=== PATIENT | female | born 1955 | race Caucasian/White ===

== ENCOUNTER → 2022-05-01 08:16 | Outpatient (CLI) | payer MEDICARE, SELFPAY ==
[2022-05-01 09:30] LABS: Hematocrit 36.9 % (36-46); Hemoglobin 12.4 g/dL (12.0-16.0); Mean Corpuscular HGB Conc 33.6 % (30-36); Mean Corpuscular Hemoglobin 31.8 PG (26-34); Mean Corpuscular Volume 94.8 fL (80-100); Platelet Count 191 X10^3/uL (150-400); Red Blood Cell Count 3.89 X10^6/uL (4.0-5.2); Red Cell Distribution Width 13.1 % (11.6-14.8); White Blood Cell Count 10.1 X10^3/uL (4.5-11.0)
[2022-05-01 09:41] LABS: Creatinine Urine Random 108.6 mg/dL
[2022-05-01 09:45] LABS: Alanine Aminotransferase 15 IU/L (<35); Albumin Globulin Ratio 1.5 (1.0-2.8); Alkaline Phosphatase 102 U/L (38-126); Aspartate Aminotransferase 22 IU/L (14-36); BUN Creatinine Ratio 22.4 (6-22); Bilirubin Total 0.2 mg/dL (0.2-1.3); Blood Urea Nitrogen 22 mg/dL (7-17); Calcium 8.8 mg/dL (8.4-10.2); Carbon Dioxide 27 mmol/L (22-32); Chloride 103 mmol/L (98-107); Cholesterol 173 mg/dL (140-199); Estimated Glomerular Filt Rate > 60 mL/min (>60); Globulin 2.6 g/dL (1.7-4.1); Glucose 227 mg/dL (80-110); HDL Cholesterol 56 mg/dL (40-60); HEMOLYSIS < 15 (0-50); LDL Cholesterol Calculated 101 mg/dL (<100); Potassium 4.3 mmol/L (3.4-5.1); Sodium 137 mmol/L (137-145); Total Protein 6.6 g/dL (6.3-8.2); Triglycerides 80 mg/dL (35-150)
[2022-05-01 09:46] LABS: Microalbumin Urine Random 2.4 mg/dL (0-1.6)
[2022-05-01 10:00] LABS: Free T3, Triiodothyronine Free 3.75 pg/mL (2.77-5.27); Free T4, Direct Thyroxine 1.27 ng/dL (0.78-2.19)
[2022-05-01 10:13] LABS: Thyroid Stimulating Hormone 3.48 uIU/mL (0.47-4.68)
[2022-05-01 10:30] LABS: Hep C Virus Ab w/Reflex Quant NEGATIVE s/c (NEGATIVE)
[2022-05-01 11:09] LABS: Neutrophils Absolute Manual 2323 /uL (3000-5900); Nucleated Red Blood Cells 1 #/Diff; Total Cells Counted 100
[2022-05-01 11:12] LABS: RBC Morphology Normal Morphology
[2022-05-02 17:44] LABS: Fecal Immunochemical Test Negative (Negative)
== END ==
PROVIDERS: PCP Nurse Practitioner; Referring Provider Nurse Practitioner; Visit Provider Nurse Practitioner
DX: Z00.00 Encounter for general adult medical examination without abnormal findings (principal); N18.9 Chronic kidney disease, unspecified; Z11.59 Encounter for screening for other viral diseases; Z12.11 Encounter for screening for malignant neoplasm of colon
CPT/HCPCS: 36415; 80053; 80061; 82043; 82274; 82570; 83036; 84439; 84443; 84481; 85025; 86803

== ENCOUNTER → 2022-06-18 10:33 | Outpatient (CLI) | payer MEDICARE, SELFPAY | PROVIDERS: PCP Nurse Practitioner; Visit Provider Nurse Practitioner | DX: N76.0 Acute vaginitis (principal) | CPT/HCPCS: 87070; 87077; 87147; 87205 ==

== ENCOUNTER 2022-07-26 12:00 | Outpatient (RCR) | payer MEDICARE, SELFPAY ==
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
== END 2022-08-01 13:50 ==
LOC: PHYS 12:00
PROVIDERS: Family Provider Nurse Practitioner; PCP Nurse Practitioner; Referring Provider Nurse Practitioner; Visit Provider Nurse Practitioner
DX: R42 Dizziness and giddiness (principal)
CPT/HCPCS: 97112; 97163; 97535

== ENCOUNTER → 2022-08-02 08:20 | Outpatient (CLI) | payer MEDICARE, SELFPAY ==
[2022-08-02 09:15] LABS: Add Manual Diff / Slide Review NO; Basophils Absolute Auto 0 /uL (0-100); Basophils Percent Auto 0.9 % (0-2); Eosinophils Absolute Auto 200 /uL (0-450); Eosinophils Percent Auto 6.2 % (2-4); Hematocrit 37.5 % (36-46); Hemoglobin 12.6 g/dL (12.0-16.0); Lymphocytes Absolute Auto 1400 /uL (1100-4500); Lymphocytes Percent Auto 36.1 % (25-40); Mean Corpuscular HGB Conc 33.6 % (30-36); Mean Corpuscular Hemoglobin 31.5 PG (26-34); Mean Corpuscular Volume 93.8 fL (80-100); Monocytes Absolute Auto 400 /uL (0-900); Monocytes Percent Auto 9.3 % (3-14); Neutrophils Absolute Auto 1800 /uL (1500-7000); Neutrophils Percent Auto 47.5 % (50-75); Platelet Count 207 X10^3/uL (150-400); Red Cell Distribution Width 12.8 % (11.6-14.8); White Blood Cell Count 3.8 X10^3/uL (4.5-11.0)
[2022-08-02 09:25] LABS: Hemoglobin A1C% w Est Avg Glu 7.3 % (4.0-6.0)
[2022-08-02 09:31] LABS: Alanine Aminotransferase 12 IU/L (<35); Albumin 4.1 g/dL (3.5-5.0); Albumin Globulin Ratio 1.4 (1.0-2.8); Alkaline Phosphatase 63 U/L (38-126); Aspartate Aminotransferase 22 IU/L (14-36); BUN Creatinine Ratio 23.3 (6-22); Bilirubin Total 0.3 mg/dL (0.2-1.3); Blood Urea Nitrogen 21 mg/dL (7-17); Calcium 8.9 mg/dL (8.4-10.2); Carbon Dioxide 30 mmol/L (22-32); Chloride 103 mmol/L (98-107); Cholesterol 162 mg/dL (140-199); Estimated Glomerular Filt Rate > 60 mL/min (>60); Globulin 2.9 g/dL (1.7-4.1); Glucose 128 mg/dL (80-110); HDL Cholesterol 53 mg/dL (40-60); HEMOLYSIS < 15 (0-50); LDL Cholesterol Calculated 95 mg/dL (<100); Potassium 4.3 mmol/L (3.4-5.1); Sodium 138 mmol/L (137-145); Triglycerides 68 mg/dL (35-150)
== END ==
PROVIDERS: Family Provider Nurse Practitioner; PCP Nurse Practitioner; Referring Provider Nurse Practitioner; Visit Provider Nurse Practitioner
DX: D64.9 Anemia, unspecified (principal); E11.69 Type 2 diabetes mellitus with other specified complication; E78.5 Hyperlipidemia, unspecified; N18.9 Chronic kidney disease, unspecified
CPT/HCPCS: 36415; 80053; 80061; 83036; 85025

== ENCOUNTER → 2022-08-13 13:00 | Outpatient (CLI) | payer MEDICARE, SELFPAY ==
--- NOTE | 2022-08-13 13:01 | DI.MG.S_ITS ---
BILATERAL DIGITAL SCREENING MAMMOGRAM 3D/2D WITH CAD: 08/13/2022 CLINICAL: Routine screening. Family history of breast cancer. Comparison is made to exams dated: 06/16/2021 mammogram and 06/10/2020 mammogram - outside location. Both breasts are almost entirely fatty (category a/<25% glandular tissue). Current study was also evaluated with a Computer Aided Detection (CAD) system. No significant masses, calcifications, or other findings are seen in either breast. There has been no significant interval change. IMPRESSION: NEGATIVE There is no mammographic evidence of malignancy. A 1 year screening mammogram is recommended. Based on the Tyrer Cuzick model (a risk assessment model) the patient's lifetime risk is 13.0% and her 10 year risk is 6.3%. According to the ACR, ACS, and NCCN guidelines, an annual breast MRI exam along with mammogram is recommended if the patient's lifetime risk is 20% or greater. This exam was interpreted at Station ID: [id number]. NOTE: For mammograms, a report in lay terms will be sent to the patient. Approximately 15% of breast malignancies will not be visualized mammographically. In the management of a palpable breast mass, a negative mammogram must not discourage biopsy of a clinically suspicious lesion. Electronically Signed By: [place] Tan M.D., jr/campbell:08/13/2022 15:14:39 letter sent: Normal Exam ACR BI-RADS Category 1: Negative [id number]
== END ==
PROVIDERS: Family Provider Nurse Practitioner; PCP Nurse Practitioner; Referring Provider Nurse Practitioner; Visit Provider Nurse Practitioner
DX: M81.0 Age-related osteoporosis without current pathological fracture (principal); Z12.31 Encounter for screening mammogram for malignant neoplasm of breast; Z80.3 Family history of malignant neoplasm of breast
CPT/HCPCS: 77063; 77067; 77080

== ENCOUNTER → 2022-10-25 10:36 | Outpatient (CLI) | payer MEDICARE, SELFPAY ==
[2022-10-25 12:27] LABS: Creatinine Urine Random 82.6 mg/dL
[2022-10-25 12:44] LABS: Microalbumi Creatinin Ratio Ur 9.6 ug/mg CR (<30); Microalbumin Urine Random 0.8 mg/dL (0-1.6)
[2022-10-25 12:56] LABS: Hemoglobin A1C% w Est Avg Glu 7.1 % (4.0-6.0)
[2022-10-25 13:31] LABS: Free T4, Direct Thyroxine 1.08 ng/dL (0.78-2.19)
[2022-10-25 13:45] LABS: Thyroid Stimulating Hormone 3.53 uIU/mL (0.47-4.68)
[2022-10-25 13:53] LABS: Alanine Aminotransferase 14 IU/L (<35); Albumin 4.1 g/dL (3.5-5.0); Albumin Globulin Ratio 1.4 (1.0-2.8); Alkaline Phosphatase 64 U/L (38-126); Aspartate Aminotransferase 22 IU/L (14-36); BUN Creatinine Ratio 19.5 (6-22); Bilirubin Total 0.3 mg/dL (0.2-1.3); Blood Urea Nitrogen 16 mg/dL (7-17); Calcium 9.2 mg/dL (8.4-10.2); Carbon Dioxide 29 mmol/L (22-32); Chloride 102 mmol/L (98-107); Cholesterol 170 mg/dL (140-199); Estimated Glomerular Filt Rate > 60 mL/min (>60); Globulin 2.9 g/dL (1.7-4.1); Glucose 127 mg/dL (80-110); HDL Cholesterol 50 mg/dL (40-60); HEMOLYSIS < 15 (0-50); LDL Cholesterol Calculated 106 mg/dL (<100); Potassium 4.2 mmol/L (3.4-5.1); Sodium 139 mmol/L (137-145); Triglycerides 71 mg/dL (35-150)
== END ==
PROVIDERS: Family Provider Nurse Practitioner; PCP Nurse Practitioner; Referring Provider Nurse Practitioner; Visit Provider Nurse Practitioner
DX: E11.69 Type 2 diabetes mellitus with other specified complication (principal); E78.5 Hyperlipidemia, unspecified; N18.9 Chronic kidney disease, unspecified; Z79.899 Other long term (current) drug therapy
CPT/HCPCS: 36415; 80053; 80061; 82043; 82570; 83036; 84439; 84443; 84481

== ENCOUNTER → 2022-12-11 11:30 | Outpatient (CLI) | payer MEDICARE, SELFPAY | PROVIDERS: Family Provider Nurse Practitioner; PCP Nurse Practitioner; Referring Provider Nurse Practitioner; Visit Provider Nurse Practitioner | DX: R42 Dizziness and giddiness (principal) | CPT/HCPCS: 93005 ==

== ENCOUNTER → 2023-01-22 10:31 | Outpatient (CLI) | payer MEDICARE, SELFPAY ==
[2023-01-22 13:02] LABS: Creatinine Urine Random 51.3 mg/dL
[2023-01-22 13:05] LABS: Alanine Aminotransferase 12 IU/L (<35); Albumin 4.1 g/dL (3.5-5.0); Albumin Globulin Ratio 1.6 (1.0-2.8); Alkaline Phosphatase 64 U/L (38-126); Aspartate Aminotransferase 19 IU/L (14-36); BUN Creatinine Ratio 19.2 (6-22); Bilirubin Total 0.3 mg/dL (0.2-1.3); Blood Urea Nitrogen 15 mg/dL (7-17); Calcium 8.9 mg/dL (8.4-10.2); Carbon Dioxide 29 mmol/L (22-32); Chloride 99 mmol/L (98-107); Cholesterol 159 mg/dL (140-199); Estimated Glomerular Filt Rate > 60 mL/min (>60); Globulin 2.5 g/dL (1.7-4.1); Glucose 110 mg/dL (80-110); HDL Cholesterol 54 mg/dL (40-60); HEMOLYSIS < 15 (0-50); LDL Cholesterol Calculated 86 mg/dL (<100); Potassium 4.3 mmol/L (3.4-5.1); Sodium 139 mmol/L (137-145); Total Protein 6.6 g/dL (6.3-8.2); Triglycerides 95 mg/dL (35-150)
[2023-01-22 13:15] LABS: Microalbumin Urine Random < 0.6 mg/dL (0-1.6)
[2023-01-22 13:22] LABS: Free T3, Triiodothyronine Free 3.84 pg/mL (2.77-5.27); Free T4, Direct Thyroxine 1.12 ng/dL (0.78-2.19)
[2023-01-22 13:36] LABS: Thyroid Stimulating Hormone 3.39 uIU/mL (0.47-4.68)
== END ==
PROVIDERS: Family Provider Nurse Practitioner; PCP Nurse Practitioner; Referring Provider Nurse Practitioner; Visit Provider Nurse Practitioner
DX: E11.69 Type 2 diabetes mellitus with other specified complication (principal); E78.5 Hyperlipidemia, unspecified; N18.9 Chronic kidney disease, unspecified; Z79.899 Other long term (current) drug therapy
CPT/HCPCS: 36415; 80053; 80061; 82043; 82570; 83036; 84439; 84443; 84481

== ENCOUNTER 2023-03-05 12:42 | Outpatient (RCR) | payer MEDICARE, SELFPAY ==
--- NOTE | 2023-03-05 16:13 | PT.OPPOC ---
Physical, Occupational & Speech Therapy At [facility] Current Diagnoses Pain in right hip (03/05/23) Visit Care Team Role Provider Type FARAZ Gillis Attending Provider Advanced [employer] Porter Family Provider Primary Care Provider Referring Provider Specialty: Family Practice Address: [address] [place] [address], [address] Email: [email or web address] Plan Of Care PT-OP-T Assessment and Plan Start: 02/26/23 11:29 Freq: Status: Active Protocol: Document 03/05/23 13:45 DCW (Rec: 03/05/23 16:11 DCW [id number]) Physical Therapy Assessment Rehab Potential Rehabilitation Potential Fair Evaluation Complexity Number of Personal Factors/Comorbidities 1-2 Number of Body Systems Impaired 1-2 Clinical Presentation at Evaluation Stable Impairments Impairments Functional Activities, Functional Mobility,Pain,ROM, Soft Tissue Mobility,Strength Goals Two Impairment Limited ROM impacts pt's ability to go horseback riding Cheese Factory Worker Goal (LTG) Pt to demonstrate improve right hip flexion to at least 120? and abduction to at least 30? 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 Significant limitation in hip ROM, both active and passive, with pain and stiffness in all planes. Does get relief with long-axis traction through LE. Additionally does display some signs of right piriformis syndrome, however limitations to hip ROM completely eliminate pt's ability to perform all stretching activities, unable to position herself for any appropriate stretching. May benefit from some hip strengthening in order to improve hip stability and hopefully increase ROM, however will likely have difficulty strengthening through full ROM, as currently most ROM is not available. Would benefit from further imaging, particularly a x-ray to determine severity of hip degeneration. Physical Therapy Plan Frequency and Duration Frequency of Treatment Every Other Week Plan of Care Start Date 03/05/23 Plan of Care End Date 05/05/23 Therapeutic Interventions Therapeutic Interventions Home Exercise Program,Joint Mobilizations,Manual Therapy, Neuromuscular Re-education, Patient/Caregiver Education, Self-Care/Home Management,Soft Tissue Mobilization, Therapeutic Activities, Therapeutic Exercises Other Referrals/Consults Referrals/Consults Recommended Strongly recommend hip x-ray Next Visit Focus/Plan Next Note Type Treatment Note Next Visit Plan Hip strengthening, stretching as tolerated, STM Plan of Care Dates Plan of Care Start Date 03/05/23 Plan of Care End Date 05/05/23 Electronically Signed by: Keon Rubin, PT 03/05/23 6255 If you are in agreement with this Plan of Care, please return a signed and dated copy. I have reviewed this Plan of Care and certify that the skilled therapy services above are required to meet the patient?s needs. Physician Signature Date Printed Name and Credentials Clinical Instructor Signature Printed Name and Credentials
--- NOTE | 2023-03-05 16:14 | PT.OIE ---
Current Diagnoses Pain in right hip (03/05/23) Past Medical History (Last Reviewed 01/31/23 @ 09:32 by FARAZ Gillis) Anemia Chronic kidney disease Hyperlipidemia associated with type 2 diabetes mellitus Non-insulin dependent diabetes mellitus without complication Visit Care Team Role Provider Type FARAZ Gillis Attending Provider Advanced Developer Programmer Analyst Family Provider Primary Care Provider Referring Provider Specialty: [facility] Practice Address: [address] [place] [address], [facility] Email: [email or web address] Physical Therapy Initial Evaluation PT-OP-A Visit Information Start: 02/26/23 11:29 Freq: Status: Active Protocol: Document 03/05/23 13:45 DCW (Rec: 03/05/23 15:28 DCW [id number]) Out-Patient Physical Therapy Visit Information Visit Information Visit Type Initial Evaluation Visit Start Time 13:45 Visit Stop Time 14:30 Total Visit Minutes 45 Visit Number 1 Number of HOCKEY INSTRUCTOR Visits 0 Evaluation Information Evaluation Date 03/05/23 PT-OP-B Current Condition Start: 02/26/23 11:29 Freq: Status: Active Protocol: Document 03/05/23 13:45 DCW (Rec: 03/05/23 15:28 DCW [id number]) Current Condition History of Current Condition Onset Date Four year history Current Complaints Right hip pain, decreased ROM History of Current Condition Pt is a 67 year old female presenting with a four year history of worsening right hip immobility. Pt has the most difficulty with hip abduction, and experiences increased pain when first attempting to get up and walk around after sitting too long. Notes she has tried a lot of stretching, but has not found anything that helps. Was able to go horseback riding recently, had difficulty getting onto the horse due to limited hip ROM, and felt pretty sore afterward . Treatment Goals Patient/Caregiver Goals Return to horseback riding with no pain or difficulty getting onto the horse. PT-OP-C Subjective Start: 02/26/23 11:29 Freq: Status: Active Protocol: Document 03/05/23 13:45 DCW (Rec: 03/05/23 15:28 DCW [id number]) OP-PT Subjective Patient Comments Patient Comments I'm not easy on myself, I really try to push it, but it just gets to the point it hurts so much, I can't move. PT-OP-F Manual Assessment Start: 03/05/23 15:17 Freq: Status: Active Protocol: Document 03/05/23 13:45 DCW (Rec: 03/05/23 15:28 DCW [id number]) Manual Assessments Soft Tissue Assessment Soft Tissue Mobility Assessment Moderate tone with tenderness to palpation 2/4: Pain with wincing at R piriformis, R hip flexors Joint Mobility Assessment Joint Mobility Assessment PROM severely limited due to joint immobility and pt complaints of pain. PT-OP-K Range of Motion Start: 02/26/23 11:29 Freq: Status: Active Protocol: Document 03/05/23 13:45 DCW (Rec: 03/05/23 15:28 DCW [id number]) Hip Goniometric Range of Motion Hip Right Passive Testing Position Supine Flexion w/Knee Flexed 103 Abduction 10 Internal Rotation 27 External Rotation 23 Left Passive Testing Position Supine Flexion w/Knee Flexed 120 Abduction 35 Internal Rotation 30 External Rotation 50 Hip ROM Limitations Hip ROM Limitations Bony Restriction,Pain PT-OP-L Special Tests Start: 02/26/23 11:29 Freq: Status: Active Protocol: Document 03/05/23 13:45 DCW (Rec: 03/05/23 15:28 DCW [id number]) Special Tests Hip Special Tests Straight Leg Raise Test Results Negative Scour Test Test Results Negative Piriformis Test Results Positive R ZURDO Test Results Unable to position due to pain PT-OP-M Strength Start: 02/26/23 11:29 Freq: Status: Active Protocol: Document 03/05/23 13:45 DCW (Rec: 03/05/23 15:28 DCW [id number]) Hip Strength Hip Manual Muscle Testing Right Flexion (L2) 4 Good Extension (S1) 4+ Good+ Abduction 4- Good- Adduction 4+ Good+ External Rotation 4+ Good+ Internal Rotation 4+ Good+ Left Flexion (L2) 5 Normal Extension (S1) 4+ Good+ Abduction 4+ Good+ Adduction 4+ Good+ External Rotation 4+ Good+ Internal Rotation 4+ Good+ PT-OP-Q Treatments Start: 02/26/23 11:29 Freq: Status: Active Protocol: Document 03/05/23 13:45 DCW (Rec: 03/05/23 16:12 DCW [id number]) Therapeutic Exercises Sidelying Exercises Clamshell Sidelying Exercise Name Clamshell Side right Resistance Yellow T-band PT-OP-T Assessment and Plan Start: 02/26/23 11:29 Freq: Status: Active Protocol: Document 03/05/23 13:45 DCW (Rec: 03/05/23 16:11 [facility] [id number]) Physical Therapy Assessment Rehab Potential Rehabilitation Potential Fair Evaluation Complexity Number of Personal Factors/Comorbidities 1-2 Number of Body Systems Impaired 1-2 Clinical Presentation at Evaluation Stable Impairments Impairments Functional Activities, Functional Mobility,Pain,ROM, Soft Tissue Mobility,Strength Goals Two Impairment Limited ROM impacts pt's ability to go horseback riding Halfway Goal (LTG) Pt to demonstrate improve right hip flexion to at least 120? and abduction to at least 30? 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 Significant limitation in hip ROM, both active and passive, with pain and stiffness in all planes. Does get relief with long-axis traction through LE. Additionally does display some signs of right piriformis syndrome, however limitations to hip ROM completely eliminate pt's ability to perform all stretching activities, unable to position herself for any appropriate stretching. May benefit from some hip strengthening in order to improve hip stability and hopefully increase ROM, however will likely have difficulty strengthening through full ROM, as currently most ROM is not available. Would benefit from further imaging, particularly a x-ray to determine severity of hip degeneration. Physical Therapy Plan Frequency and Duration Frequency of Treatment Every Other Week Plan of Care Start Date 03/05/23 Plan of Care End Date 05/05/23 Therapeutic Interventions Therapeutic Interventions Home Exercise Program,Joint Mobilizations,Manual Therapy, Neuromuscular Re-education, Patient/Caregiver Education, Self-Care/Home Management,Soft Tissue Mobilization, Therapeutic Activities, Therapeutic Exercises Other Referrals/Consults Referrals/Consults Recommended Strongly recommend hip x-ray Next Visit Focus/Plan Next Note Type Treatment Note Next Visit Plan Hip strengthening, stretching as tolerated, STM
--- NOTE | 2023-09-09 16:03 | PT.OPDS ---
Current Diagnoses Pain in right hip (03/05/23) Visit Care Team Role Provider Type FARAZ Gillis Attending Provider [employer] Professional Family Provider Primary Care Provider Referring Provider Specialty: Family Practice Address: [address] [place] [address], [facility] Email: [email or web address] Visit Number Visit Number 1 Discharge Summary PT-OP-B Current Condition Start: 02/26/23 11:29 Freq: Status: Active Protocol: Document 03/05/23 13:45 [facility] (Rec: 03/05/23 15:28 [facility] [id number]) Current Condition History of Current Condition Onset Date Four year history Current Complaints Right hip pain, decreased ROM History of Current Condition Pt is a 67 year old female presenting with a four year history of worsening right hip immobility. Pt has the most difficulty with hip abduction, and experiences increased pain when first attempting to get up and walk around after sitting too long. Notes she has tried a lot of stretching, but has not found anything that helps. Was able to go horseback riding recently, had difficulty getting onto the horse due to limited hip ROM, and felt pretty sore afterward . Treatment Goals Patient/Caregiver Goals Return to horseback riding with no pain or difficulty getting onto the horse. PT-OP-C Subjective Start: 02/26/23 11:29 Freq: Status: Active Protocol: Document 03/05/23 13:45 [facility] (Rec: 03/05/23 15:28 [facility] [id number]) OP-PT Subjective Patient Comments Patient Comments I'm not easy on myself, I really try to push it, but it just gets to the point it hurts so much, I can't move. PT-OP-F Manual Assessment Start: 03/05/23 15:17 Freq: Status: Active Protocol: Document 03/05/23 13:45 [facility] (Rec: 03/05/23 15:28 [facility] [id number]) Manual Assessments Soft Tissue Assessment Soft Tissue Mobility Assessment Moderate tone with tenderness to palpation 2/4: Pain with wincing at R piriformis, R hip flexors Joint Mobility Assessment Joint Mobility Assessment PROM severely limited due to joint immobility and pt complaints of pain. PT-OP-K Range of Motion Start: 02/26/23 11:29 Freq: Status: Active Protocol: Document 03/05/23 13:45 [facility] (Rec: 03/05/23 15:28 [facility] [id number]) Hip Goniometric Range of Motion Hip Right Passive Testing Position Supine Flexion w/Knee Flexed 103 Abduction 10 Internal Rotation 27 External Rotation 23 Left Passive Testing Position Supine Flexion w/Knee Flexed 120 Abduction 35 Internal Rotation 30 External Rotation 50 Hip ROM Limitations Hip ROM Limitations Bony Restriction,Pain PT-OP-L Special Tests Start: 02/26/23 11:29 Freq: Status: Active Protocol: Document 03/05/23 13:45 [facility] (Rec: 03/05/23 15:28 [facility] [id number]) Special Tests Hip Special Tests Straight Leg Raise Test Results Negative Scour Test Test Results Negative Piriformis Test Results Positive R ZURDO Test Results Unable to position due to pain PT-OP-M Strength Start: 02/26/23 11:29 Freq: Status: Active Protocol: Document 03/05/23 13:45 [facility] (Rec: 03/05/23 15:28 [facility] [id number]) Hip Strength Hip Manual Muscle Testing Right Flexion (L2) 4 Good Extension (S1) 4+ Good+ Abduction 4- Good- Adduction 4+ Good+ External Rotation 4+ Good+ Internal Rotation 4+ Good+ Left Flexion (L2) 5 Normal Extension (S1) 4+ Good+ Abduction 4+ Good+ Adduction 4+ Good+ External Rotation 4+ Good+ Internal Rotation 4+ Good+ PT-OP-T Assessment and Plan Start: 02/26/23 11:29 Freq: Status: Active Protocol: Document 09/09/23 16:02 [facility] (Rec: 09/09/23 16:03 [facility] [id number]) Physical Therapy Assessment Assessment Summary Assessment Pt never scheduled any follow -up visits for this condition, is now being treated at this facility for a separate issue. Physical Therapy Plan Discharge Physical Therapy Discharge Reasons No Longer Attending PT
== END 2023-09-12 09:59 | disposition home or self-care (01) ==
LOC: PHYS 12:42
PROVIDERS: Family Provider Nurse Practitioner; PCP Nurse Practitioner; Referring Provider Nurse Practitioner; Visit Provider Nurse Practitioner
DX: M25.551 Pain in right hip (principal)
CPT/HCPCS: 97161

== ENCOUNTER → 2023-03-06 11:48 | Outpatient (CLI) | payer MEDICARE, SELFPAY ==
--- NOTE | 2023-03-06 11:52 | DI.RAD.S_ITS ---
PROCEDURE: XR HIP W PEL IF DONE RT 2V INDICATIONS: right hip pain TECHNIQUE: AP pelvis with lateral view(s) of the right hip(s). COMPARISON: None. FINDINGS: Bones: No fractures or dislocations. Asymmetric mild to moderate superolateral joint space narrowing in the right hip with moderate spurs. Femoral heads are normal shape. Mild sclerosis and trace cystic changes at the pubic symphysis. Pelvic ring appears intact. No suspicious bony lesions. Soft tissues: The visualized bowel gas pattern is normal. No suspicious soft tissue calcifications. IMPRESSION: 1. Mild to moderate, asymmetric right femoroacetabular joint space loss and spurring. Dictated by: Cecily Hamilton M.D. on 03/06/2023 at 13:47 Approved by: Cecily Hamilton M.D. on 03/06/2023 at 13:49
== END ==
PROVIDERS: Family Provider Nurse Practitioner; PCP Nurse Practitioner; Referring Provider Nurse Practitioner; Visit Provider Nurse Practitioner
DX: M25.551 Pain in right hip (principal)
CPT/HCPCS: 73502

== ENCOUNTER → 2023-04-25 09:11 | Outpatient (CLI) | payer MEDICARE, SELFPAY ==
[2023-04-25 10:40] LABS: Alanine Aminotransferase 12 IU/L (<35); Albumin 4.2 g/dL (3.5-5.0); Albumin Globulin Ratio 1.7 (1.0-2.8); Alkaline Phosphatase 71 U/L (38-126); Aspartate Aminotransferase 20 IU/L (14-36); BUN Creatinine Ratio 22.7 (6-22); Bilirubin Total 0.2 mg/dL (0.2-1.3); Blood Urea Nitrogen 20 mg/dL (7-17); Calcium 9.4 mg/dL (8.4-10.2); Carbon Dioxide 30 mmol/L (22-32); Chloride 99 mmol/L (98-107); Cholesterol 155 mg/dL (140-199); Estimated Glomerular Filt Rate > 60 mL/min (>60); Globulin 2.5 g/dL (1.7-4.1); Glucose 133 mg/dL (80-110); HDL Cholesterol 62 mg/dL (40-60); HEMOLYSIS < 15 (0-50); LDL Cholesterol Calculated 81 mg/dL (<100); Potassium 4.4 mmol/L (3.4-5.1); Sodium 136 mmol/L (137-145); Total Protein 6.7 g/dL (6.3-8.2); Triglycerides 59 mg/dL (35-150)
[2023-04-25 16:29] LABS: HIV 1 & 2 Ab/Ag 4th Gen Combo NEGATIVE (NEGATIVE)
[2023-04-26 04:38] LABS: Labcorp Hemoglobin (Hb) A1c 7.2 % (4.8-5.6)
== END ==
PROVIDERS: Family Provider Nurse Practitioner; PCP Nurse Practitioner; Referring Provider Nurse Practitioner; Visit Provider Nurse Practitioner
DX: E11.69 Type 2 diabetes mellitus with other specified complication (principal); E78.5 Hyperlipidemia, unspecified; Z11.4 Encounter for screening for human immunodeficiency virus [HIV]; Z79.899 Other long term (current) drug therapy
CPT/HCPCS: 36415; 80053; 80061; 83036; 87389

== ENCOUNTER → 2023-05-05 10:58 | Outpatient (CLI) | payer MEDICARE, SELFPAY ==
--- NOTE | 2023-05-05 11:17 | DI.MRI.S_ITS ---
PROCEDURE: MR HIP RT WO CON INDICATIONS: Unilateral primary osteoarthritis, right hip TECHNIQUE: Noncontrast coronal T1 spin echo and STIR through the bony pelvis. Coronal and axial T2 fast spin echo with fat saturation, sagittal T1 spin echo, and oblique axial T2 fast spin echo with fat saturation through the hip. COMPARISON: [facility], CR, XR HIP W PEL IF DONE RT 2V, 03/06/2023, 11:49. FINDINGS: Image quality: Excellent. Bones and joints: There is moderate periarticular osteophyte formation at the right hip joint. Bone marrow of the pelvic ring and proximal femurs show normal signal throughout. No intraosseous lesions or fractures. No avascular necrosis of the femoral heads. The visualized lower lumbar spine appears normally aligned. There is a small right hip joint effusion. Tendons and ligaments: The gluteus medius and minimus tendons appear intact, without associated muscle atrophy. Mild T2 signal elevation at the femoral insertion sites of the right gluteus medius and minimus tendons. The nearby proximal iliotibial band also appears intact. The iliopsoas tendon appears intact, without adjacent bursal fluid collections or evidence for impingement syndrome. The origin of the hamstring tendon is intact at the ischial tuberosity, as well as the associated sacrotuberous ligament. The straight and reflected heads of the rectus femoris muscle origin appear intact, as well as the conjoint tendon. The ligamentum teres appears intact where visualized. Labrum and cartilage: There is diffuse undercutting of the labrum. Cartilage surface of the femoral head appears of normal thickness. The alpha angle of the femur is within normal limits at less than 55 degrees. Soft tissues: Visualized muscles demonstrate normal bulk and internal signal. Quadratus femoris muscle demonstrates no internal edema to suggest ischiofemoral impingement. The proximal sciatic neurovascular bundle appears normal adjacent to the hamstring tendons. There is a small amount of free pelvic fluid. Bladder wall thickness is normal. Genitourinary structures and bowel loops appear normal where visualized. IMPRESSION: 1. Right hip osteoarthritis associated with diffuse labral tearing. 2. Insertional tendinitis of the right gluteus medius and minimus tendons. 3. Small amount of nonspecific free fluid within the pelvis, which is abnormal in this presumably postmenopausal female. Differential considerations include infection, inflammation, and neoplasm. Dictated by: Joe Hernández M.D. on 05/06/2023 at 11:07 Approved by: Joe Hernández M.D. on 05/06/2023 at 11:09
== END ==
PROVIDERS: Family Provider Nurse Practitioner; PCP Nurse Practitioner; Referring Provider Orthopaedic Surgery; Visit Provider Orthopaedic Surgery
DX: M16.11 Unilateral primary osteoarthritis, right hip (principal); S73.191A Other sprain of right hip, initial encounter; M76.01 Gluteal tendinitis, right hip
CPT/HCPCS: 73721

== ENCOUNTER → 2023-05-23 12:15 | Outpatient (CLI) | payer MEDICARE, SELFPAY ==
--- NOTE | 2023-05-23 12:16 | DI.US.S_ITS ---
PROCEDURE: US ABDOMEN COMPLETE INDICATIONS: Free fluid in pelvis TECHNIQUE: Real-time scanning was performed of the abdominal and retroperitoneal organs, with image documentation. COMPARISON: None. FINDINGS: No free fluid is visualized within the 4 quadrants of the abdomen. IMPRESSION: No sonographic evidence for ascites. Dictated by: Sonam Colindres M.D. on 05/23/2023 at 16:21 Approved by: Sonam Colindres M.D. on 05/23/2023 at 16:21
--- NOTE | 2023-05-23 12:16 | DI.US.S_ITS ---
PROCEDURE: US PELVIC COMPLETE INDICATIONS: Rt. hip pain TECHNIQUE: Real-time scanning was performed of the pelvic organs, with image documentation. Additional endovaginal scanning was necessary due to incomplete visualization of the adnexal and endometrial structures by transabdominal scanning. COMPARISON: None. FINDINGS: Uterus: Uterus is anteverted and normal in size at 6.5 x 2.8 x 3.9 cm. The myometrium is homogeneous. The endometrium measures 1 mm combined thickness. No fibroids. Ovaries: The right ovary measures 2.0 x 1.7 x 1.5 cm, with a calculated ovarian volume of 2.65 cc. The left ovary measures 1.9 x 1.7 x 1.2 cm, with a calculated ovarian volume of 3.0 cc. The ovaries have a normal postmenopausal sonographic appearance. Other: No pathologic free abdominal or pelvic fluid. IMPRESSION: Unremarkable pelvic ultrasound. We strive to produce accurate, complete, and clear reports of imaging services. To assist us in improving patient care, this report was composed using standard report templates and voice recognition software. Therefore, it may contain abnormal punctuation, insertions and/or omissions. Occasional wrong-word or sound-alike substitutions may occur. Though we review the report and make efforts to correct it, we do recommend that the report be read carefully in proper context to recognize any text inaccuracies. Dictated by: Morris Valentine M.D. on 05/23/2023 at 16:10 Approved by: Morris Valentine M.D. on 05/23/2023 at 16:11
== END ==
PROVIDERS: Family Provider Nurse Practitioner; PCP Nurse Practitioner; Referring Provider Obstetrics & Gynecology; Visit Provider Obstetrics & Gynecology
DX: R18.8 Other ascites (principal); M25.551 Pain in right hip
CPT/HCPCS: 76700; 76705; 76830; 76856

== ENCOUNTER → 2023-06-26 08:11 | Outpatient (CLI) | payer MEDICARE, SELFPAY ==
[2023-06-26 08:47] LABS: Add Manual Diff / Slide Review NO; Basophils Absolute Auto 0 /uL (0-100); Eosinophils Absolute Auto 300 /uL (0-450); Eosinophils Percent Auto 9.9 % (2-4); Hematocrit 35.2 % (36-46); Hemoglobin 12.1 g/dL (12.0-16.0); Lymphocytes Absolute Auto 900 /uL (1100-4500); Mean Corpuscular HGB Conc 34.3 % (30-36); Mean Corpuscular Hemoglobin 31.7 PG (26-34); Mean Corpuscular Volume 92.3 fL (80-100); Monocytes Absolute Auto 400 /uL (0-900); Monocytes Percent Auto 11.1 % (3-14); Neutrophils Absolute Auto 1600 /uL (1500-7000); Platelet Count 189 X10^3/uL (150-400); Red Blood Cell Count 3.81 X10^6/uL (4.0-5.2); Red Cell Distribution Width 12.9 % (11.6-14.8); White Blood Cell Count 3.3 X10^3/uL (4.5-11.0)
[2023-06-26 09:09] LABS: Alanine Aminotransferase 17 IU/L (<35); Albumin 3.9 g/dL (3.5-5.0); Albumin Globulin Ratio 1.5 (1.0-2.8); Alkaline Phosphatase 77 U/L (38-126); Aspartate Aminotransferase 24 IU/L (14-36); BUN Creatinine Ratio 23.1 (6-22); Bilirubin Total 0.3 mg/dL (0.2-1.3); Blood Urea Nitrogen 18 mg/dL (7-17); Calcium 8.9 mg/dL (8.4-10.2); Carbon Dioxide 30 mmol/L (22-32); Chloride 100 mmol/L (98-107); Cholesterol 163 mg/dL (140-199); Estimated Glomerular Filt Rate > 60 mL/min (>60); Globulin 2.6 g/dL (1.7-4.1); Glucose 157 mg/dL (80-110); HDL Cholesterol 64 mg/dL (40-60); HEMOLYSIS < 15 (0-50); LDL Cholesterol Calculated 74 mg/dL (<100); Potassium 4.2 mmol/L (3.4-5.1); Sodium 137 mmol/L (137-145); Total Protein 6.5 g/dL (6.3-8.2); Triglycerides 123 mg/dL (35-150)
[2023-06-26 09:23] LABS: Free T3, Triiodothyronine Free 3.42 pg/mL (2.77-5.27); Free T4, Direct Thyroxine 1.19 ng/dL (0.78-2.19)
[2023-06-26 09:37] LABS: Thyroid Stimulating Hormone 3.97 uIU/mL (0.47-4.68)
[2023-06-26 18:05] LABS: Creatinine Urine Random 82.7 mg/dL
[2023-06-26 18:10] LABS: Microalbumi Creatinin Ratio Ur 8.4 ug/mg CR (<30); Microalbumin Urine Random 0.7 mg/dL (0-1.6)
[2023-06-27 07:07] LABS: x Labcorp Estim. Avg Glu (eAG) 174 mg/dL (.); x Labcorp Hemoglobin A1c 7.7 % (4.8-5.6)
[2023-06-27 15:40] LABS: Fecal Immunochemical Test Negative (Negative)
== END ==
PROVIDERS: Family Provider Nurse Practitioner; PCP Nurse Practitioner; Referring Provider Nurse Practitioner; Visit Provider Nurse Practitioner
DX: D64.9 Anemia, unspecified (principal); E11.69 Type 2 diabetes mellitus with other specified complication; E78.5 Hyperlipidemia, unspecified; N18.9 Chronic kidney disease, unspecified; Z79.899 Other long term (current) drug therapy; Z12.11 Encounter for screening for malignant neoplasm of colon
CPT/HCPCS: 36415; 80053; 80061; 82043; 82274; 82570; 83036; 84439; 84443; 84481; 85025

== ENCOUNTER → 2023-09-03 11:07 | Outpatient (CLI) | payer MEDICARE, SELFPAY ==
--- NOTE | 2023-09-03 11:08 | DI.MG.S_ITS ---
BILATERAL DIGITAL SCREENING MAMMOGRAM 3D/2D WITH CAD: 09/03/2023 CLINICAL: Routine screening. Family history of breast cancer. Comparison is made to exams dated: 08/13/2022 mammogram - [facility], 06/16/2021 mammogram, and 06/10/2020 mammogram - outside location. Both breasts are extremely dense, which lowers the sensitivity of mammography (category d />75% glandular tissue). Current study was also evaluated with a Computer Aided Detection (CAD) system. No significant masses, calcifications, or other findings are seen in either breast. There has been no significant interval change. IMPRESSION: NEGATIVE There is no mammographic evidence of malignancy. A 1 year screening mammogram is recommended. Based on Tyrer-Cuzick model (a risk assessment model), the patient's lifetime risk is 37.6% and her 10 year risk is 20.6%. If a patient has an elevated risk, a more comprehensive evaluation should be considered and/or a referral to a genetic counselor. The [employer], [employer], and NCCN Guidelines advise the consideration of Breast MRI as an adjunct to screening mammography in patients whose Lifetime risk to develop breast cancer is 20% or higher. This exam was interpreted at Station ID: [id number]. NOTE: For mammograms, a report in lay terms will be sent to the patient. Approximately 15% of breast malignancies will not be visualized mammographically. In the management of a palpable breast mass, a negative mammogram must not discourage biopsy of a clinically suspicious lesion. Electronically Signed By: Reed guevara/campbell:09/03/2023 13:17:41 letter sent: Normal Exam ACR BI-RADS Category 1: Negative [id number]
== END ==
PROVIDERS: Family Provider Nurse Practitioner; PCP Nurse Practitioner; Referring Provider Nurse Practitioner; Visit Provider Nurse Practitioner
DX: Z12.31 Encounter for screening mammogram for malignant neoplasm of breast (principal); Z80.3 Family history of malignant neoplasm of breast
CPT/HCPCS: 77063; 77067

== ENCOUNTER → 2023-09-14 08:28 | Outpatient (CLI) | payer MEDICARE, SELFPAY ==
[2023-09-14 09:18] LABS: Hemoglobin A1C% w Est Avg Glu 8.8 % (4.0-6.0)
== END ==
PROVIDERS: Family Provider Nurse Practitioner; PCP Nurse Practitioner; Referring Provider Family Medicine; Visit Provider Family Medicine
DX: E11.9 Type 2 diabetes mellitus without complications (principal)
CPT/HCPCS: 36415; 83036

== ENCOUNTER 2023-10-15 15:15 | Outpatient (RCR) | payer MEDICARE, SELFPAY ==
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
--- NOTE | 2023-08-27 18:00 | PT.OPPOC ---
Physical, Occupational & Speech Therapy At [facility] Current Diagnoses Tinnitus, bilateral (08/27/23) Pain in left shoulder (08/27/23) Cervicalgia (08/27/23) Pain in left arm (08/27/23) Abnormal posture (08/27/23) Headache, unspecified (08/27/23) Weakness (08/27/23) Visit Care Team Role Provider Type FARAZ Gillis Attending Provider Advanced Slab Inspector Family Provider Primary Care Provider Referring Provider Specialty: Family Practice Address: [address] [place] [address], [id number] Email: [email or web address] Plan Of Care PT-OP-T Assessment and Plan Start: 06/03/23 09:31 Freq: Status: Active Protocol: Document 08/27/23 14:22 [facility] (Rec: 08/27/23 17:59 [facility] [id number]) Physical Therapy Assessment Goals activities Short Term Goal (STG) Pt will be able to lay on L side to sleep w/o inc pain. 07/30-sometimes she can fall alseep on L; sometimes can inc pain after shor times; much btter 08/27-minor aching w/laying on L STG Duration 09/25 Detention Goal (LTG) Pt will be able to return to swimming w/o inc pain 07/30-note sshe doesn't look to lap swim now but doing well aqua aerobics class and gets some soreness w/treading motion; avoids hanging on the wall 08/27-Pt reports she hasn't been to the pool d/t fatigue LTG Duration 10/22 symptoms Short Term Goal (STG) Pt will report no pain greater than 3/10 in L arm 07/30-worst recently 10 for sharp flashes; for longer pain w/4/10 09/23-1/10 most of time ; recently worst is 10 but disipates STG Duration 09/26 Detention Goal (LTG) Pt will report CERRATO no more than 1x/week and no tinnitus 07/30-dull CERRATO for 3/10 about 1- 2x/wk; every couple days R ear goes loud; has it on L side some; baseline always there 08/27-haven't noticed CERRATO; ringing same goes up/down LTG Duration 10/22 strength Short Term Goal (STG) Pt will be indep w/HEP STG Duration achieved advancing as able Detention Goal (LTG) Pt will score at least 3/5 on EFt and equal LUE strength to RUE MMT. 07/30-advaning 08/27-much improved LTG Duration 10/22 ROM Short Term Goal (STG) Pt will improve flexion AROM to at least 145 and Abd ROM to at least 95 deg STG Duration achiedv 07/30 Detention Goal (LTG) Pt will have full cervical ROM w/o tightness and full LUE ROM w/o pain in order to allow ability to do ADls and driving w/o pain or limitation 08/21/23: progressing: R Side AROM LUE: FF 150deg improvement 11 deg from 08/13 ABD 115 deg (cued maintain frontal plane, tends come into sagittal plane) seated L shld AROM seated: FF same 148 deg ABD 135deg (dec 10 deg) Ext 62 deg (dec 7 deg, pain end feel) ER same 58 deg IR standing: T5 (RUE T1) AROM R shld standing: FF 145 deg ABD 153 deg 08/27-much improved ROM but still limited by pain w/ shoulder; cervical ROM WFL and does not feel as restricted to pt LTG Duration 10/22 Assessment Summary Assessment Pt has much improved mobility including ROM and strength. She is noting much less UE discomfort, but mostly L shoulder pain. It is much less than it used to be. Pt still tends to have scap sit elevated and ant tipped but can now self correct w/o mechanical restriction.S he does still have some GH stiffness cuasing ant shear of GH joint. After manual and taping, pt had much greater ease w/abd. Cont PT to focus on strengthening and motor control of overhead motions Physical Therapy Plan Frequency and Duration Frequency of Treatment 1x/Week Duration of treatment (weeks) 8 Plan of Care Start Date 08/27/23 Plan of Care End Date 10/22/23 Therapeutic Interventions Therapeutic Interventions Balance Training,Gait Training ,Home Exercise Program,Joint Mobilizations,Manual Therapy, Neuromuscular Re-education, Orthotic/Prosthetic Management ,Patient/Caregiver Education, Self-Care/Home Management,Soft Tissue Mobilization,Taping, Therapeutic Activities, Therapeutic Exercises, Vestibular Rehabilitation Modalities Cold Pack/Ice Massage,Electric Stimulation,Hot Packs, Infrared Therapy,Iontophoresis ,Traction- Mechanical, Ultrasound Next Visit Focus/Plan Next Note Type Treatment Note Next Visit Plan Work on pt scap and RC strength for improved GH rhythm; assess tape response, prone exercises, scap clocks Plan of Care Dates Plan of Care Start Date 08/27/23 Plan of Care End Date 10/22/23 Electronically Signed by: Bety Echevarria, PT 08/27/23 1800 If you are in agreement with this Plan of Care, please return a signed and dated copy. I have reviewed this Plan of Care and certify that the skilled therapy services above are required to meet the patient?s needs. Physician Signature Date Printed Name and Credentials Clinical Instructor Signature Printed Name and Credentials
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
== END 2023-10-16 10:39 | disposition home or self-care (01) ==
LOC: PHYS 15:15
PROVIDERS: Absent Provider Nurse Practitioner; Family Provider Nurse Practitioner; PCP Nurse Practitioner; Referring Provider Nurse Practitioner; Visit Provider Nurse Practitioner
DX: M25.512 Pain in left shoulder (principal); M79.602 Pain in left arm; M54.2 Cervicalgia; R51.9 Headache, unspecified; R29.3 Abnormal posture; R53.1 Weakness; H93.13 Tinnitus, bilateral
CPT/HCPCS: 95851; 97110; 97112; 97140; 97162; 97535

== ENCOUNTER → 2023-12-14 10:31 | Outpatient (CLI) | payer OTHER, SELFPAY ==
[2023-12-14 11:45] LABS: Add Manual Diff / Slide Review NO; Basophils Absolute Auto 100 /uL (0-100); Basophils Percent Auto 1.2 % (0-2); Eosinophils Absolute Auto 700 /uL (0-450); Eosinophils Percent Auto 15.1 % (2-4); Hematocrit 36.6 % (36-46); Hemoglobin 12.2 g/dL (12.0-16.0); Lymphocytes Absolute Auto 1100 /uL (1100-4500); Lymphocytes Percent Auto 25.8 % (25-40); Mean Corpuscular HGB Conc 33.3 % (30-36); Mean Corpuscular Hemoglobin 31.5 PG (26-34); Mean Corpuscular Volume 94.8 fL (80-100); Monocytes Absolute Auto 300 /uL (0-900); Monocytes Percent Auto 7.8 % (3-14); Neutrophils Absolute Auto 2200 /uL (1500-7000); Neutrophils Percent Auto 50.1 % (50-75); Platelet Count 232 X10^3/uL (150-400); Red Blood Cell Count 3.86 X10^6/uL (4.0-5.2); Red Cell Distribution Width 13.1 % (11.6-14.8); White Blood Cell Count 4.4 X10^3/uL (4.5-11.0)
[2023-12-14 12:06] LABS: Creatinine Urine Random 45.5 mg/dL
[2023-12-14 12:11] LABS: Microalbumi Creatinin Ratio Ur 21.9 ug/mg CR (<30)
[2023-12-14 12:12] LABS: Alanine Aminotransferase 14 IU/L (<35); Albumin 4.1 g/dL (3.5-5.0); Albumin Globulin Ratio 1.4 (1.0-2.8); Alkaline Phosphatase 74 U/L (38-126); Aspartate Aminotransferase 22 IU/L (14-36); BUN Creatinine Ratio 24.2 (6-22); Bilirubin Total 0.4 mg/dL (0.2-1.3); Blood Urea Nitrogen 22 mg/dL (7-17); Calcium 9.5 mg/dL (8.4-10.2); Carbon Dioxide 24 mmol/L (22-32); Chloride 102 mmol/L (98-107); Cholesterol 152 mg/dL (140-199); Estimated Glomerular Filt Rate > 60 mL/min (>60); Globulin 2.9 g/dL (1.7-4.1); Glucose 115 mg/dL (80-110); HDL Cholesterol 59 mg/dL (40-60); HEMOLYSIS < 15 (0-50); LDL Cholesterol Calculated 74 mg/dL (<100); Potassium 4.4 mmol/L (3.4-5.1); Sodium 137 mmol/L (137-145); Triglycerides 93 mg/dL (35-150)
[2023-12-14 13:10] LABS: HEMOLYSIS < 15 (0-50); Iron 75 ug/dL (37-170)
[2023-12-14 13:21] LABS: Percent Iron Saturation 23 % (15-50); Total Iron Binding Capacity 329 ug/dL (265-497); Transferrin 281 mg/dL (206-381)
[2023-12-14 13:27] LABS: Free T3, Triiodothyronine Free 3.36 pg/mL (2.77-5.27); Free T4, Direct Thyroxine 1.08 ng/dL (0.78-2.19)
[2023-12-14 13:40] LABS: Thyroid Stimulating Hormone 3.81 uIU/mL (0.47-4.68)
== END ==
PROVIDERS: Family Provider Nurse Practitioner; PCP Nurse Practitioner; Referring Provider Nurse Practitioner; Visit Provider Nurse Practitioner
DX: E11.9 Type 2 diabetes mellitus without complications (principal); R53.83 Other fatigue; D64.9 Anemia, unspecified; E11.69 Type 2 diabetes mellitus with other specified complication; E78.5 Hyperlipidemia, unspecified; N18.9 Chronic kidney disease, unspecified; Z79.4 Long term (current) use of insulin
CPT/HCPCS: 36415; 80053; 80061; 82043; 82570; 83540; 83550; 84439; 84443; 84481; 85025

== ENCOUNTER → 2024-02-12 10:32 | Outpatient (CLI) | payer MEDICARE, SELFPAY ==
--- NOTE | 2024-02-12 11:00 | DI.MRI.S_ITS ---
BREAST MRI OF BOTH BREASTS: 02/12/2024 CLINICAL: High Risk Screening. TECHNIQUE: The patient was placed prone in a dedicated breast imaging coil. Precontrast axial STIR and 3D FLASH without fat saturation sequences were obtained. Both before and after bolus injection of contrast, sequential 1-minute axial 3D FLASH with fat saturation sequences for 3 time points, with subtraction images and maximum intensity projections (MIP's) generated. Delayed sagittal FLASH images with fat saturation were also obtained. Computer-aided detection, including computer algorithm analysis of MRI image data for lesion detection and characterization, pharmacokinetic analysis, with further physician review for interpretation, was performed. COMPARISON: [facility], SCREENING MAMMO BI, 08/13/2022, 13:37. [facility], SCREENING MAMMO BI, 09/03/2023, 11:25. Image quality: Excellent. There is mild background parenchymal enhancement. There is heterogeneously dense fibroglandular tissue in the bilateral breast. Right breast: There is an isointense, minimally peripheral enhancing lesion in the anterior-middle depth of the right breast near the 6 o'clock axis measuring approximately 1.3 x 1.2 cm in size with associated biopsy marker. Oval, subareolar enhancing mass along the inner aspect of the right breast demonstrates central fatty hilum and is consistent with a intramammary lymph node. Otherwise, no suspicious mass, non-mass enhancement or architectural distortion. A few foci of prominent background parenchymal enhancement the lateral aspect of the right breast. No skin or nipple abnormalities. No axillary or internal mammary chain adenopathy. Left breast: No suspicious mass, non-mass enhancement, or architectural distortion. No skin or nipple abnormalities. No axillary or internal mammary chain adenopathy. Miscellaneous: There is a 2.7 cm right hepatic lobe cyst. Otherwise, visualized portions of the upper abdomen and chest appear unremarkable. IMPRESSION: BENIGN 1. No MRI evidence for malignancy in the right breast. 2. No MRI evidence for malignancy in the left breast. 3. Recommend continued annual screening mammography and consideration for continued adjunct screening breast MRI. COMMENT: The imaging literature indicates that a negative contrast breast MRI examination has a high sensitivity and a moderate specificity for detecting and excluding invasive carcinomas to a detection threshold of 3-5 mm; nonetheless, appropriate clinical and mammographic follow-up are recommended. MRI is not sensitive for detecting DCIS (ductal carcinoma in situ) and may not detect large invasive neoplasms that show only minimal enhancement such as mucinous carcinoma. If there are suspicious calcifications or clinically worrisome palpable masses, then biopsy should still be considered. Invasive neoplasms can be hidden by co-existent and benign enhancement caused by mastitis, hormone therapy effects, radiation therapy, , and recent biopsy or surgery. False positive examinations can occur in a number of circumstances, including breasts that have recently been subject to invasive procedures and those that contain atypical ductal hyperplasia, hormonally stimulated glandular tissue, fat necrosis, or radial scars. Future imaging is recommended as follows: 09/03/2024 screening mammogram. This exam was interpreted at Station ID: [id number]. Electronically Signed By: Andrea Mahmood M.D. aty/:02/14/2024 09:31:55 ACR BI-RADS Category 2: Benign Finding(s) 3342F
== END ==
PROVIDERS: Family Provider Nurse Practitioner; PCP Nurse Practitioner; Referring Provider Nurse Practitioner; Visit Provider Nurse Practitioner
DX: Z12.39 Encounter for other screening for malignant neoplasm of breast (principal); Z91.89 Other specified personal risk factors, not elsewhere classified; R92.333 Mammographic heterogeneous density, bilateral breasts
CPT/HCPCS: 77049; A9579

== ENCOUNTER → 2024-07-02 10:12 | Outpatient (CLI) | payer MEDICARE, SELFPAY ==
[2024-07-02 12:27] LABS: BUN Creatinine Ratio 23.7 (6-22); Blood Urea Nitrogen 22 mg/dL (7-17); Calcium 9.2 mg/dL (8.4-10.2); Carbon Dioxide 29 mmol/L (22-32); Chloride 104 mmol/L (98-107); Cholesterol 174 mg/dL (140-199); Estimated Glomerular Filt Rate > 60 mL/min (>60); Glucose 118 mg/dL (80-110); HDL Cholesterol 61 mg/dL (40-60); HEMOLYSIS < 15 (0-50); LDL Cholesterol Calculated 101 mg/dL (<100); Potassium 4.2 mmol/L (3.4-5.1); Sodium 139 mmol/L (137-145); Triglycerides 62 mg/dL (35-150)
[2024-07-02 12:42] LABS: Hemoglobin A1C% w Est Avg Glu 7.4 % (4.0-6.0)
[2024-07-02 15:50] LABS: Creatinine Urine Random 62.06 mg/dL
[2024-07-02 15:55] LABS: Microalbumin Urine Random < 0.6 mg/dL (0-1.6)
== END ==
PROVIDERS: Family Provider Nurse Practitioner; PCP Nurse Practitioner; Referring Provider Internal Medicine Endocrinology, Diabetes & Metabolism; Visit Provider Internal Medicine Endocrinology, Diabetes & Metabolism
DX: E11.65 Type 2 diabetes mellitus with hyperglycemia (principal); Z79.4 Long term (current) use of insulin
CPT/HCPCS: 36415; 80048; 80061; 82043; 82570; 83036; 86337; 86341

== ENCOUNTER → 2024-09-08 12:54 | Outpatient (CLI) | payer MEDICARE, SELFPAY ==
--- NOTE | 2024-09-08 14:24 | DIAB.INIT ---
Initial Diabetes Education Assessment Name: John Ortez Date: 09/08/24 Time: 1-2p Dx: THALIA Provider: Martin Preferred Learning Style: Pawel Lopez presents for initial DM visit. Reports PMH of DM sine 2011, originally diagnosed with T2 with difficulty managed BG. Recently diagnosed with THALIA at endo with + DARIUS antibodies. Endorses FH of T1 with maternal grandmother and cousin. Reports difficulty with abdominal injection pulling blood. No issue with back of arm. using 5 mm needle. Interested in G7, currently on G6 Dexcom model. has questions about eating low carb vs high fat vs high carb with coverage. Aims for 0-25g CHO at meals. Endo rec 25g at each meal. States she has done q fad diet. Now enjoying eating more regular foods. Doses insulin only for lunch and dinner. Questions about sick day management. Needs more education on DKA. Thinks she may have slow gastric emptying due to double peaked BG in CGM reports. Seems more likely r/t exercise and lack of insulin coverage. Sometimes will skip mealtime insulin if eating cho but BG is 120s. Physical Activity: walking daily 10-30 min after meals. PT starting soon for hip. Self-Monitoring Blood Glucose: Some recent increases in BG over 180 per report from road trip. States she is usually in the 90s for time in range. Having elevations often after lunch and dinner. TIR: 1% very high 10% high 88% high 1% low <1% very low avmg/dl GMI: 6.6% std dev: 38mg/dl variation: 27.6% Diabetes Medications: 1000mg Metformin BID 8-9u Glargine 2-3u meal time BID -- sometimes none Pertinent Labs: HGA1c: 7.4% 06/2024 Past Medical History: (Last Reviewed 02/20/24 @ 10:23 by FARAZ Gillis) Allergies Anemia At high risk for breast cancer Chronic kidney disease Diabetes type 2, controlled Hyperlipidemia associated with type 2 diabetes mellitus Type 2 diabetes mellitus with insulin therapy Intervention: This participant was very receptive. Provided appropriate educational handouts. Discussed the following topics: Completed intake assessment. Discussed barriers to care. DKA s/s and potential causes Sick day management and when to seek medical care Encouraged taking ac insulin when eating CHO Encouraged 30g CHO at meals with balanced pro/fat Discouraged taking meal insulin after meal Reviewed potential for smaller mm insulin needles Reviewed potential for pump therapy Created SMART goals for patient self-care and success. Goals: Take insulin ac Discuss pump as an option with endo next visit check out smaller mm needle options at pharmacy Follow-up: FRANCIA ORELLANA follow-up prn. States she may call for f/u after nov appt with endo. Encouraged her to call for follow-up or questions prn, she agreed. Provided G7 sample for her. Rosi Vila RDN, [facility] Certified Diabetes Care and [employer] P: [phone] Thank you for this referral
== END ==
PROVIDERS: Family Provider Nurse Practitioner; PCP Nurse Practitioner; Referring Provider Nurse Practitioner
DX: E13.8 Other specified diabetes mellitus with unspecified complications (principal); Z71.3 Dietary counseling and surveillance; Z79.4 Long term (current) use of insulin; Z79.84 Long term (current) use of oral hypoglycemic drugs
CPT/HCPCS: G0108

== ENCOUNTER → 2024-10-01 14:33 | Outpatient (CLI) | payer MEDICARE, SELFPAY ==
--- NOTE | 2024-10-01 14:34 | DI.MG.S_ITS ---
BILATERAL DIGITAL SCREENING MAMMOGRAM 3D/2D WITH CAD: 10/01/2024 CLINICAL: Routine screening. Family history of breast cancer. Comparison is made to exams dated: 02/12/2024 breast MRI, 09/03/2023 mammogram, and 08/13/2022 mammogram - [facility]. The breasts are extremely dense, which lowers the sensitivity of mammography (category d />75% glandular tissue). Current study was also evaluated with a Computer Aided Detection (CAD) system. No significant masses, calcifications, or other findings are seen in either breast. There has been no significant interval change. IMPRESSION: NEGATIVE There is no mammographic evidence of malignancy. A 1 year screening mammogram is recommended. Based on Tyrer-Cuzick model (a risk assessment model), the patient's lifetime risk is 36.1% and her 10 year risk is 20.5%. If a patient has an elevated risk, a more comprehensive evaluation should be considered and/or a referral to a genetic counselor. The [place] [employer], [place] [employer], and NCCN Guidelines advise the consideration of Breast MRI as an adjunct to screening mammography in patients whose Lifetime risk to develop breast cancer is 20% or higher. This exam was interpreted at Station ID: [id number]. NOTE: For mammograms, a report in lay terms will be sent to the patient. Approximately 15% of breast malignancies will not be visualized mammographically. In the management of a palpable breast mass, a negative mammogram must not discourage biopsy of a clinically suspicious lesion. Electronically Signed By: Andrea dunaway/campbell:10/02/2024 07:38:19 letter sent: Normal Exam ACR BI-RADS Category 1: Negative
== END ==
PROVIDERS: Family Provider Nurse Practitioner; PCP Family Medicine; Referring Provider Family Medicine; Visit Provider Family Medicine
DX: Z12.31 Encounter for screening mammogram for malignant neoplasm of breast (principal); Z80.3 Family history of malignant neoplasm of breast; R92.343 Mammographic extreme density, bilateral breasts
CPT/HCPCS: 77063; 77067

== ENCOUNTER → 2024-12-01 08:38 | Outpatient (CLI) | payer MEDICARE, SELFPAY ==
[2024-12-01 09:43] LABS: Creatinine Urine Random 72.45 mg/dL
[2024-12-01 09:47] LABS: Microalbumin Urine Random < 0.6 mg/dL (0-1.6)
[2024-12-01 09:56] LABS: BUN Creatinine Ratio 23.2 (6-22); Blood Urea Nitrogen 22 mg/dL (7-17); Calcium 9.3 mg/dL (8.4-10.2); Carbon Dioxide 29 mmol/L (22-32); Chloride 105 mmol/L (98-107); Cholesterol 218 mg/dL (140-199); Estimated Glomerular Filt Rate > 60 mL/min (>60); Glucose 120 mg/dL (80-110); HDL Cholesterol 70 mg/dL (40-60); HEMOLYSIS < 15 (0-50); LDL Cholesterol Calculated 134 mg/dL (<100); Sodium 135 mmol/L (137-145); Triglycerides 68 mg/dL (35-150)
[2024-12-01 15:22] LABS: Hemoglobin A1C% w Est Avg Glu 6.5 % (4.0-6.0)
== END ==
LOC: LAB 08:40
PROVIDERS: Family Provider Nurse Practitioner; PCP Family Medicine; Referring Provider Internal Medicine Endocrinology, Diabetes & Metabolism; Visit Provider Internal Medicine Endocrinology, Diabetes & Metabolism
DX: E11.65 Type 2 diabetes mellitus with hyperglycemia (principal); Z79.4 Long term (current) use of insulin
CPT/HCPCS: 36415; 80048; 80061; 82043; 82570; 83036

== ENCOUNTER → 2025-02-23 13:11 | Outpatient (CLI) | payer MEDICARE, SELFPAY ==
--- NOTE | 2025-02-23 13:12 | DI.MRI.S_ITS ---
MR breast BI wo/w con: 02/23/2025. BI-RADS: 2 CLINICAL: 69-year old female for bilateral screening breast MRI. Current reported family history of breast cancer: mother, sister and second sister. The patient reports testing negative for BRCA gene mutation. PRIOR EXAMS 10/01/2024, 02/12/2024, 09/03/2023, 08/13/2022. MRI TECHNIQUE Bilateral breast MRI was performed on a 1.5 Rosio magnet using a dedicated breast coil with mild compression. Axial T1 and T2 STIR sequences were obtained. Dynamic contrast enhanced VIBRANT fat-suppressed sequences were obtained. Delayed sagittal high resolution or sagittal reconstructed isotropic sequence was also obtained. Subtraction images and maximum intensity projection images were obtained. The study was evaluated using Cashkaro software. Gadavist was injected intravenously: mL. IV Contrast: ProHance. FIBROGLANDULAR TISSUE Bilateral: D. Extreme fibroglandular tissue. BACKGROUND PARENCHYMAL ENHANCEMENT Bilateral: Mild symmetrical background parenchymal enhancement. BREAST FINDINGS Right: Benign-appearing mass or masses noted. There is no suspicious finding with benign findings noted. No significant change since previous exam(s). Left: No suspicious mass, suspicious non-mass enhancement, or other concerning finding identified. No significant change since previous exam(s). ABDOMEN FINDINGS Visualized portions of the upper abdomen appear unremarkable. Stable liver cyst. IMPRESSION: Right * No evidence of malignancy with benign findings. Left * No evidence of malignancy. RECOMMENDATIONS Bilateral * According to the Tyrer-Cuzick Risk Assessment Model, based on the information provided your patient has a greater than 20% lifetime risk for developing breast cancer. Consider supplemental screening with breast MRI and participation in a high risk screening program. * Annual screening mammography. OVERALL ASSESSMENT CATEGORY BI-RADS-2: Benign. ELECTRONICALLY SIGNED: Andrea Mahmood M.D. on 02/23/2025 at 08:03:13 PM PT Interpreting Station ID: [id number]
== END ==
PROVIDERS: Family Provider Nurse Practitioner; PCP Family Medicine; Referring Provider Family Medicine; Visit Provider Family Medicine
DX: Z12.39 Encounter for other screening for malignant neoplasm of breast (principal); Z91.89 Other specified personal risk factors, not elsewhere classified; R92.323 Mammographic fibroglandular density, bilateral breasts; K76.89 Other specified diseases of liver; Z80.3 Family history of malignant neoplasm of breast
CPT/HCPCS: 77049; Q9967

== ENCOUNTER → 2025-06-12 09:13 | Outpatient (CLI) | payer MEDICARE, SELFPAY ==
[2025-06-12 11:30] LABS: Blood Urea Nitrogen 23 mg/dL (7-17); Calcium 9.2 mg/dL (8.4-10.2); Carbon Dioxide 28 mmol/L (22-32); Chloride 103 mmol/L (98-107); Cholesterol 172 mg/dL (140-199); Estimated Glomerular Filt Rate > 60 mL/min (>60); Glucose 147 mg/dL (70-99); HDL Cholesterol 62 mg/dL (40-60); HEMOLYSIS < 15 (0-50); Potassium 4.6 mmol/L (3.4-5.1); Sodium 136 mmol/L (137-145); Triglycerides 71 mg/dL (35-150)
[2025-06-12 11:52] LABS: Hemoglobin A1C% w Est Avg Glu 6.8 % (4.0-6.0)
[2025-06-12 12:10] LABS: Microalbumi Creatinin Ratio Ur 11.0 ug/mg CR (<30)
== END ==
PROVIDERS: Family Provider Nurse Practitioner; PCP Family Medicine; Referring Provider Internal Medicine Endocrinology, Diabetes & Metabolism; Visit Provider Internal Medicine Endocrinology, Diabetes & Metabolism
DX: E13.9 Other specified diabetes mellitus without complications (principal)
CPT/HCPCS: 36415; 80048; 80061; 82043; 82570; 83036

== ENCOUNTER → 2025-10-15 13:49 | Outpatient (CLI) | payer MEDICARE, SELFPAY ==
[2025-10-15 15:27] LABS: Hemoglobin A1C% w Est Avg Glu 7.0 % (4.0-6.0)
== END ==
PROVIDERS: PCP Family Medicine; Referring Provider Family Medicine; Visit Provider Family Medicine
DX: Z01.89 Encounter for other specified special examinations (principal); Z79.4 Long term (current) use of insulin; E11.69 Type 2 diabetes mellitus with other specified complication; E78.5 Hyperlipidemia, unspecified; N18.9 Chronic kidney disease, unspecified; R53.83 Other fatigue
CPT/HCPCS: 36415; 83036; 86376

== ENCOUNTER → 2025-10-28 11:15 | Outpatient (CLI) | payer MEDICARE, SELFPAY ==
[2025-10-28 12:46] LABS: T4 Total Thyroxine 6.78 ug/dL (5.5-11.0)
[2025-10-28 13:00] LABS: TSH w/ Reflex to FT4 3.48 uIU/mL (0.47-4.68)
== END ==
PROVIDERS: PCP Family Medicine; Referring Provider Family Medicine; Visit Provider Family Medicine
DX: R76.89 Other specified abnormal immunological findings in serum (principal)
CPT/HCPCS: 36415; 84436; 84443; 84445; 84480

== ENCOUNTER → 2025-11-03 12:41 | Outpatient (CLI) | payer MEDICARE, SELFPAY ==
--- NOTE | 2025-11-03 12:42 | DI.MG.S_ITS ---
MM screening mammo BI: 11/03/2025. BI-RADS: 2 CLINICAL: 70-year old female for bilateral screening mammogram. Tyrer-Cuzick lifetime risk of 35.5%. Current reported family history of breast cancer: mother, sister and second sister. The patient reports testing negative for BRCA gene mutation. The patient had a prior right breast biopsy. PRIOR EXAMS 10/01/2024, 02/12/2024, 09/03/2023, 08/13/2022. MAMMOGRAPHY TECHNIQUE: 2D and 3D (tomosynthesis) digital mammographic views obtained, with additional images as needed for full coverage. Current study was also evaluated with a Computer Aided Detection (CAD) system. DENSITY D. The breasts are extremely dense, which lowers the sensitivity of mammography. MAMMOGRAPHY FINDINGS Right: Biopsy marker present on the right. Benign-appearing asymmetry and calcifications noted on the right. There are no suspicious masses, calcifications, or other findings in the breast. Left: No suspicious mass, asymmetry, microcalcification, or other abnormality seen. IMPRESSION: Right * No evidence of malignancy with benign findings. Left * No evidence of malignancy. RECOMMENDATIONS Bilateral * According to the Tyrer-Cuzick Risk Assessment Model, based on the information provided your patient has a greater than 20% lifetime risk for developing breast cancer. Consider supplemental screening with breast MRI and participation in a high risk screening program. * Annual screening mammography. OVERALL ASSESSMENT CATEGORY BI-RADS-2: Benign. The [employer] recommends annual screening mammography beginning at age 40 for women with average risk of breast cancer. ELECTRONICALLY SIGNED: Andrea Mahmood M.D. on 11/04/2025 at 11:39:14 AM PT Interpreting Station ID: [id number]
== END ==
LOC: MAMMO 12:42
PROVIDERS: PCP Family Medicine; Referring Provider Family Medicine; Visit Provider Family Medicine
DX: Z12.31 Encounter for screening mammogram for malignant neoplasm of breast (principal); R92.343 Mammographic extreme density, bilateral breasts; Z80.3 Family history of malignant neoplasm of breast
CPT/HCPCS: 77063; 77067